=== PATIENT | female | born 1995 | race Caucasian/White ===

== ENCOUNTER 2017-03-16 19:00 | Outpatient (CLI) | payer BC, OTHER ==
[2017-03-16 19:18] VITALS: BP 122/69; PULSE 102; RESP 16; TEMP 96.6
[2017-03-16 19:20] LABS: Appearance,Urine Clear (Clear); Bilirubin,Urine Negative (Negative); Glucose,Urine (UA) Negative (Negative); Ketones,Urine Negative (Negative); Leukocyte Esterase,Urine Negative (Negative); Nitrite,Urine Negative (Negative); Protein,Urine Negative (Negative); Specific Gravity,Urine 1.003 (1.001-1.035); UA Billing (MACRO vs. MICRO) CHEM; Urobilinogen,Urine <2.0 mg/dL (<2.0)
== END 2017-03-16 19:45 | disposition home or self-care (01) ==
LOC: FBPOP 19:00
PROVIDERS: ATTEND Obstetrics & Gynecology
DX: O99.89 Other specified diseases and conditions complicating pregnancy, childbirth and the puerperium (principal); Z3A.30 30 weeks gestation of pregnancy; M54.5 Low back pain
CPT/HCPCS: 59025; 81003; 99213

== ENCOUNTER 2017-05-10 13:22 | Outpatient (CLI) | payer OTHER ==
[2017-05-10 13:42] VITALS: BP 112/68; PULSE 111; RESP 16; TEMP 98.1
== END 2017-05-10 14:40 | disposition home or self-care (01) ==
LOC: FBPOP 13:22
PROVIDERS: ATTEND Obstetrics & Gynecology
DX: O36.8130 Decreased fetal movements, third trimester, not applicable or unspecified (principal); Z3A.40 40 weeks gestation of pregnancy
CPT/HCPCS: 59025; G0463; 99213

== ENCOUNTER 2017-05-12 21:25 | Outpatient (CLI) | payer OTHER ==
[2017-05-13 00:15] VITALS: BP 121/73; PULSE 121; RESP 16; TEMP 97.4
--- NOTE | 2017-05-15 12:06 | P.MSEPDOC ---
Presenting Problems - Arrival Data Date of Arrival on Unit: 05/12/17 Time of Arrival on Unit: 21:25 Mode of Transport: Ambulatory - Complaint OB-Reason for Admission/Chief Complaint: Possible Onset of Labor Medical History - Information : 1 Para: 0 Term: 0 : 0 Abortions: Spontaneous or Elective: 0 Number of Living Children: 0 - Gestational Age Expected Date of Delivery: 05/10/17 Gestational Age by ADITHYA (wks/days): 40 Weeks and 5 Days - History Sexually Transmitted Diseases: HSV Review of Systems - Review of Systems Constitutional: No problems Breast: No problems ENT: No problems Cardiovascular: No problems Respiratory: No problems Gastrointestinal: No problems Genitourinary: No problems Musculoskeletal: No problems Neurological: No problems Skin: No problems Vital Signs - Temperature Temperature: 97.4 F Temperature Source: Oral - Pulse Right Sitting Brachial Pulse Rate: 121 Pulse Assessment Method: Automatic Cuff - Respirations Respiratory Rate: 16 Oxygen Delivery Method: Room Air - Blood Pressure Right Arm Sitting Blood Pressure: 121/73 Blood Pressure Mean: 89 Blood Pressure Source: Automatic Cuff Medical Screen Scoring (Pre) - Cervical Exam Dilation: 1-3 cm = 1 Effacement: More than 50% = 2 Membranes: Intact - Uterine Contractions Frequency: > or = 36 weeks =2 Duration: > 40 seconds = 2 - Maternal Vital Signs Maternal Temperature: N/A Maternal Blood Pressure: N/A Signs of Preeclampsia: N/A Maternal Respirations: N/A - Maternal Trauma Maternal Trauma: N/A - Assessment Baseline FHR: 135 Heart Rate - NICHD Category: Category I (Normal) = 0 NST: Reactive Position: N/A Station: N/A - Total Score Total Score (Pre): 7 - Level of Risk Level of Risk: Medium (6-9) Medical Screen Scoring (Post) - Cervical Exam Dilation: 1-3 cm = 1 Effacement: More than 50% = 2 Membranes: Intact - Uterine Contractions Frequency: > or = 36 weeks =2 Duration: > 40 seconds = 2 Intensity: N/A - Maternal Vital Signs Maternal Temperature: N/A Maternal Blood Pressure: N/A Signs of Preeclampsia: N/A Maternal Respirations: N/A - Maternal Trauma Maternal Trauma: N/A - Assessment Heart Rate: 140 Heart Rate - NICHD Category: Category I (Normal) = 0 NST: Reactive Position: N/A Station: N/A - Total Score Total Score (Post): 7 - Post Treatment Level of Risk Post Treatment Level of Risk: Medium (6-9) Physician Notification (Post) - Physician Notified Physician Notified Date: 05/12/17 Physician Notified Time: 23:39 Physician/Practitioner Notified:: dr luevano Spoke With: dr luevano New Order Received: Yes Disposition - Disposition OB Disposition: Discharge to home Discharge Date: 05/13/17 Discharge Time: 00:00 I agree with the RN Medical Screening Exam: Yes Risk & Benefit of care provided described in d/c instruction: Yes Diagnosis: 40 WEEKS GESTATION OF
== END 2017-05-13 | disposition home or self-care (01) ==
LOC: FBPOP 21:25
PROVIDERS: ATTEND Obstetrics & Gynecology
DX: O24.419 Gestational diabetes mellitus in pregnancy, unspecified control (principal); Z3A.40 40 weeks gestation of pregnancy
CPT/HCPCS: 59025; G0463; 99213

== ENCOUNTER 2017-05-13 02:19 | Inpatient (IN) | payer OTHER ==
[2017-05-13] MEDS ORDERED: CARBOPROST TROMETHAMINE 250 MCG/ML 1 ML AMP IM PRN (02:31)
[2017-05-13] MEDS ORDERED: METHYLERGONOVINE 0.2 MG/ML 1 ML AMP IM PRN (02:31)
[2017-05-13] MEDS ORDERED: LIDOCAINE 1% (PF) 10 MG/ML (30 ML SDV) SQ PRN (02:31)
[2017-05-13] MEDS ORDERED: OXYTOCIN 10 UNIT/ML 1 ML VIAL IM PRN (02:31)
[2017-05-13] MEDS ORDERED: TERBUTALINE 1 MG/ML VIAL SQ PRN (02:31)
[2017-05-13] MEDS ORDERED: LACTATED RINGERS 1,000 ML IV SCH ×2 (02:45→12:45)
[2017-05-13 03:05] LABS: Anisocytosis Slight; Basophils % (A) 0 %; CH 24.1; Eosinophils # (A) 0.5 k/uL (0-0.7); Eosinophils % (A) 3 %; HCT 33.3 % (34.0-46.0); HDW 3.49; HGB 10.6 gm/dL (11.4-16.0); Hypochromasia Marked; Luc % (Auto) 3; Lymphocytes # (A) 2.3 k/uL (1.0-4.8); Lymphocytes % (A) 15 %; MCH 24.9 pg (25.0-35.0); MCV 77.9 fL (80.0-100.0); Mean Platelet Volume 6.7; Microcytosis Slight; Monocytes # (A) 0.5 k/uL (0-1.0); Monocytes % (A) 3 %; Neutrophils # (A) 11.2 k/uL (1.3-7.7); Neutrophils % (A) 75 %; Poikilocytosis Slight; RBC 4.27 m/uL (3.80-5.40); RDW 16.1 % (11.5-15.5); WBC 14.8 k/uL (4.0-11.0); WBC (Perox) 15.65
[2017-05-13] MEDS ORDERED: fentaNYL (PF) 50 MCG/ML 5 ML AMP ONE ×2 (03:24→11:44)
[2017-05-13] MEDS ORDERED: SODIUM CHLORIDE 0.9% 100 ML BAG ONE ×2 (03:24→11:44)
[2017-05-13] MEDS ORDERED: BUPIVACAINE (PF) 0.25% 30 ML VIAL ONE ×2 (03:24→11:44)
[2017-05-13] MEDS: LACTATED RINGERS 1,000 ML IV SCH ×2 (03:36→09:33)
--- NOTE | 2017-05-13 07:56 | P.HPOB ---
History of Present Illness H&P Date: 05/13/17 Chief Complaint: Strong regular uterine contractions This is a 21-year-old white female 1 para 0 EDC 05/10/2017 at 40-3/7 weeks' gestation. Patient presented through the night to labor and delivery with strong regular uterine contractions. Fetus is been active throughout the . She denies fluid leakage or vaginal bleeding. history: Blood type is A+, rubella status immune. VDRL testing, group B strep cultures, HIV testing, gonorrhea and chlamydia cultures all negative. Hour Glucola elevated, 3 hour GTT within normal limits. Rubella status immune. Past medical history is significant for herpes simplex virus, patient with no active lesions at this time. No prodrome. Past medical history is also significant for asthma. Past surgical history is negative. Current medications Ventolin inhaler 1 puff every 6 hours as needed, Valtrex prophylactically daily. ALLERGIES to cats and seasonal ALLERGIES, no known medical ALLERGIES. Social history patient previously smoked one half pack per day tobacco, she is , she denies alcohol or drug use. Family history is essentially noncontributory. On exam this is a pleasant young female, 5 foot 2 inches, 195 pounds, initial blood pressure 119/71, vital signs are stable and she is afebrile. The general physical exam is within normal limits. The chest is clear in all wilcox. The cervix at time of this dictation is 8 cm dilated, 75% effaced, -2 station, vertex presentation. Spontaneous amniorrhexis earlier revealed light meconium- stained fluid. heart rate is in the 140s with frequent accelerations, consistent with reactive NST. Spontaneous contractions are occurring every 5-6 minutes apart, and epidural is in place and working well. Impression: 40-3/7 weeks intrauterine , light meconium-stained fluid, active spontaneous labor, all signs reassuring. Plan: We will begin a small amount of oxytocin augmentation and manage as clinically appropriate. Continue close maternal and surveillance. Anticipate normal spontaneous vaginal delivery. Past Medical History Past Medical History: Asthma Additional Past Medical History / Comment(s): HSV History of Any Multi-Drug Resistant Organisms: None Reported Past Surgical History: No Surgical Hx Reported Past Anesthesia/Blood Transfusion Reactions: No Reported Reaction Past Psychological History: No Psychological Hx Reported Smoking Status: Former smoker Past Alcohol Use History: None Reported Past Drug Use History: None Reported - Past Family History Mother Family Medical History: No Reported History Medications and Allergies Home Medications Medication Instructions Recorded Confirmed Type Vit,Calc78/Iron/Folic 1 each PO DAILY 03/16/17 05/13/17 History [Pretab 29 mg-1 mg Tablet] Allergies Allergy/AdvReac Type Severity Reaction Status Date / Time No Known Allergies Allergy Verified 05/13/17 02:29 Exam - Vital Signs Vital signs: Vital Signs Temp Pulse Resp BP Pulse Ox 05/13/17 02:35 96.5 F L 109 H 18 119/71 99 05/13/17 02:29 96.2 F L 109 H 18 119/71 Intake and Output 05/12/17 05/13/17 05/13/17 22:59 06:59 14:59 Other: Weight 88.451 kg Results Result Diagrams: 05/13/17 02:55 Abnormal Lab Results - Last 24 Hours (Table) 05/13/17 Range/Units 02:55 WBC 14.8 H (4.0-11.0) k/uL Hgb 10.6 L (11.4-16.0) gm/dL Hct 33.3 L (34.0-46.0) % MCV 77.9 L (80.0-100.0) fL MCH 24.9 L (25.0-35.0) pg RDW 16.1 H (11.5-15.5) % Neutrophils # 11.2 H (1.3-7.7) k/uL
[2017-05-13] MEDS ORDERED: OXYTOCIN 20 UNITS/1000 ML NS 1,000 ML IV SCH (08:00)
[2017-05-13] MEDS ORDERED: ceFAZolin 1,000 MG VIAL ONE (11:44)
[2017-05-13] MEDS ORDERED: OXYTOCIN 10 UNIT/ML 1 ML VIAL ONE (11:44)
[2017-05-13] MEDS ORDERED: MIDAZOLAM 2 MG/2 ML VIAL ONE (11:44)
[2017-05-13] MEDS ORDERED: SUCCINYLCHOLINE CHLORIDE 100 MG/5 ML SYR IV ONE (11:44)
[2017-05-13] MEDS ORDERED: PROPOFOL 10 MG/ML 20 ML VIAL IV ONE (11:44)
[2017-05-13] MEDS ORDERED: CITRIC ACID-SODIUM CITRATE 15 ML CUP PO ONE (12:29)
[2017-05-13] MEDS ORDERED: ACETAMINOPHEN TAB 325 MG TAB PO PRN (12:44)
[2017-05-13] MEDS ORDERED: diphenhydrAMINE 50 MG CAP PO PRN (12:44)
[2017-05-13] MEDS ORDERED: ZOLPIDEM 5 MG TAB PO PRN (12:44)
[2017-05-13] MEDS ORDERED: SIMETHICONE 80 MG CHEWABLE PO PRN (12:44)
[2017-05-13] MEDS ORDERED: METOCLOPRAMIDE 5 MG/ML 2 ML VIAL IVP PRN (12:44)
[2017-05-13] MEDS ORDERED: diphenhydrAMINE 25 MG CAP PO PRN (12:44)
[2017-05-13] MEDS ORDERED: IBUPROFEN 600 MG TAB PO PRN (12:44)
[2017-05-13] MEDS ORDERED: diphenhydrAMINE 50 MG/ML 1 ML VIAL IVP PRN ×2 (12:44)
[2017-05-13] MEDS ORDERED: ONDANSETRON 4 MG/2 ML VIAL IVP PRN (12:44)
[2017-05-13] MEDS ORDERED: NALOXONE 0.4 MG/ML 1 ML VIAL IV PRN (12:44)
--- NOTE | 2017-05-13 12:44 | P.OP ---
Date of Procedure: 05/13/17 Preoperative Diagnosis: Nonreassuring heart tones, 40-3/7 weeks intrauterine , meconium- stained fluid Postoperative Diagnosis: Liveborn male , left occiput transverse position, tight nuchal cord 1 Procedure(s) Performed: Primary low transverse section Implants: Anesthesia: GETA Surgeon: Gina Castro Assurance Manager Insurance #1: Mar Canales Estimated Blood Loss (ml): 600 IV fluids (ml): 1,000 Urine output (ml): 400 Pathology: other (Placenta) Condition: stable Disposition: PACU Indications for Procedure: Operative Findings: Description of Procedure: Patient was brought to the operating suite and placed in the dorsal supine position. The abdomen is prepped and draped in usual sterile fashion. Eubanks catheter placed to direct drainage, Bicitra given. Left lateral uterine displacement is obtained. The appropriate timeout is performed to assure proper patient and procedural identification. Because of the stat nature of this case, general anesthetic was administered without difficulty A low transverse skin incision is made in this is carried down through the subcutaneous tissue which is approximate 4 cm deep. The fascia is isolated, scored, extended bilaterally with curved De La Cruz scissors. Peritoneum is next identified and incised, there is no bowel or bladder involvement. Bladder blade is placed over the dome of the bladder and at all times the bladder is Well from the operative field to avoid bladder and/or ureteral injury. A bladder flap was not developed. A low transverse uterine incision is made in this is extended with blunt dissection. The infant's head is delivered in the left occiput transverse position, there is a tight nuchal cord 1. Bulb suctioning of the oropharynx, nasopharynx and external nares is performed on the abdomen. Patient is officially delivered of a liveborn male at 1151 hours. Umbilical cord is doubly clamped and ligated, he is immediately handed to waiting senior insight manager international where scores of 13 and 7 at one and 5 and 10 minutes respectively are given. The placenta delivered manually, it is inspected and noted to be intact with trivascular cord at 1152 hours. The uterus is then externalized. It is massaged and swept clean with a sponge to avoid any retained products of conception. The uterus is closed in a two- step fashion, utilizing 0 Vicryl suture, first layer running locking, second layer imbricated. Excellent reapproximation and hemostasis is noted. Bilateral tubes and ovaries are inspected and noted to be normal. No uterine defects, fibroids, or septa are appreciated. The abdomen is suctioned with suction on guard and the uterus is gently placed back into the abdominal cavity. Bilateral gutters are inspected and cleaned. Hemostasis again is excellent. The peritoneum was allowed to close by secondary intention. The fascia is closed in a running stitch of 0 Vicryl with over ligation in the midline. Subcutaneous tissue is irrigated, noted to be clean and dry. It is reapproximated with 3-0 Vicryl in a running fashion. 4-0 undyed Vicryl is used in a subcuticular manner for final skin closure. Steri-Strips and Mastisol are applied to the wound. 2 g of Ancef were given. Baby weighs 9 lbs. 4 oz. or 4190 g. He is in special care nursery at this time being cared for by pediatricians. Cord gases have been drawn. Results pending at this time.
[2017-05-13] MEDS: MORPHINE PCA 30 MG/30 ML SYRINGE IV PRN ×3 (13:17→23:56)
[2017-05-13] MEDS: KETOROLAC 30 MG/ML 1 ML VIAL IVP PRN (21:03)
[2017-05-13] MEDS: SENNOSIDES-DOCUSATE SODIUM 1 EACH TAB PO SCH (21:48)
[2017-05-14] MEDS: KETOROLAC 30 MG/ML 1 ML VIAL IVP PRN ×3 (03:13→15:13)
[2017-05-14] MEDS ORDERED: SODIUM CHLORIDE 0.9% 100 ML BAG ONE ×2 (03:24→11:44)
[2017-05-14] MEDS ORDERED: BUPIVACAINE (PF) 0.25% 30 ML VIAL ONE ×2 (03:24→11:44)
[2017-05-14] MEDS ORDERED: fentaNYL (PF) 50 MCG/ML 5 ML AMP ONE ×2 (03:24→11:44)
[2017-05-14 06:41] LABS: Anisocytosis Slight; Basophils % (A) 0 %; CH 23.9; CHCM 30.2; Eosinophils # (A) 0.3 k/uL (0-0.7); Eosinophils % (A) 2 %; HCT 22.3 % (34.0-46.0); HDW 3.44; Hypochromasia Marked; Luc # (Auto) 0.28; Luc % (Auto) 3; Lymphocytes # (A) 1.5 k/uL (1.0-4.8); Lymphocytes % (A) 14 %; MCH 25.3 pg (25.0-35.0); MCHC 31.9 g/dL (31.0-37.0); MCV 79.4 fL (80.0-100.0); Mean Platelet Volume 8.6; Microcytosis Slight; Monocytes # (A) 0.4 k/uL (0-1.0); Monocytes % (A) 4 %; Neutrophils # (A) 8.5 k/uL (1.3-7.7); Neutrophils % (A) 78 %; Poikilocytosis Slight; RDW 16.3 % (11.5-15.5); WBC (Perox) 10.84
[2017-05-14 06:48] LABS: HGB 7.1 gm/dL (11.4-16.0)
--- NOTE | 2017-05-14 07:46 | P.DS ---
Providers Date of admission: 05/13/17 02:35 Expected date of discharge: 05/14/17 Attending physician: Gina Castro Primary care physician: Gina Castro [facility] Course: This is a 21-year-old white female 1 para 0 EDC 05/10/2017 at 40-3/7 weeks' gestation. Patient presented in active spontaneous labor. was essentially unremarkable, group B strep cultures negative, blood type A+, rubella status immune. Please see dictated history and physical for details. Spontaneous amniorrhexis revealed meconium-stained fluid. Patient dilated to 9 cm at which time a deceleration was noted in the heart rate which did not return to baseline upon position change, oxygen administration, and discontinuation of oxytocin augmentation. Decision was made to proceed with primary low transverse section. Patient delivered a liveborn male with scores of 1, 3 and 7 at 1, 5 and 10 minutes respectively. weighed 4190 g, or 9 lbs. 4 oz. He was in the left occiput transverse position with a tight nuchal cord 1. There was an estimated blood loss recorded of 600 mL's. Please see my dictated operative note for details. Patient did well through the night. Her [facility] care. This morning the patient is very anxious to be discharged home so that she could join her son down in [place]. She is voiding , passing flatus and ambulating without difficulty. She is slightly tachycardic this morning with a pulse of 106, otherwise vital signs are stable. Morning CBC has been drawn but is pending. Her incision is clean and dry, intact with Steri-Strips applied. The fundus is firm and in the midline, slightly tender, mobile and 18 week size. Extremities reveal trace edema. Chest is clear in all wilcox. Breasts are not engorged. Plan is for likely discharge home later today. This will be pending CBC results and patient's pulse. I had advanced her diet, she may shower. I have given her prescription for Tylenol No. 3 to be used every 6 hours as needed for pain. She will alternate this with Aleve which she has at home. I have reminded her no intercourse, tampons or douching. We have reviewed proper incisional care. She will call me with any fevers shakes or chills, foul smelling or copious lochia, with the passage of any large blood clots, with any pain not alleviated by Tylenol 3 and or Aleve. She will call with any breast issues, with any incisional issues, or indeed with any concerns. Follow-up in the office with me in 2 weeks. Patient Condition at Discharge: Good Plan - Discharge Summary New Discharge Prescriptions: No Action Vit,Calc78/Iron/Folic [Pretab 29 mg-1 mg Tablet] 1 tab PO DAILY Discharge Medication List Vit,Calc78/Iron/Folic [Pretab 29 mg-1 mg Tablet] 1 tab PO DAILY [History] Follow up Appointment(s)/Referral(s): Gina Castro MD [Primary Care Provider] - 2 Weeks Discharge Disposition: HOME SELF-CARE
[2017-05-14] MEDS: Acetaminophen-Codeine 300-30mg TAB PO PRN ×2 (07:52→12:25)
[2017-05-14] MEDS: SENNOSIDES-DOCUSATE SODIUM 1 EACH TAB PO SCH (07:54)
[2017-05-14 10:22] VITALS: RESP 20
[2017-05-14] MEDS ORDERED: MIDAZOLAM 2 MG/2 ML VIAL ONE (11:44)
[2017-05-14] MEDS ORDERED: SUCCINYLCHOLINE CHLORIDE 100 MG/5 ML SYR IV ONE (11:44)
[2017-05-14] MEDS ORDERED: OXYTOCIN 10 UNIT/ML 1 ML VIAL ONE (11:44)
[2017-05-14] MEDS ORDERED: PROPOFOL 10 MG/ML 20 ML VIAL IV ONE (11:44)
[2017-05-14] MEDS ORDERED: KETOROLAC 30 MG/ML 1 ML VIAL ONE (11:44)
[2017-05-14 12:29] VITALS: BP 99/56; PULSE 98; TEMP 97.8
== END 2017-05-14 15:45 | disposition home or self-care (01) | DRG 766 ==
LOC: FBPOP 02:19 → 4FBP 02:35
PROVIDERS: ADMIT Obstetrics & Gynecology; ATTEND Obstetrics & Gynecology
PROC: 10D00Z1 Extraction of Products of Conception, Low, Open Approach (ICD-10-PCS; principal; 2017-05-13 11:47)
DX: O76 Abnormality in fetal heart rate and rhythm complicating labor and delivery (principal); J45.909 Unspecified asthma, uncomplicated; Z37.0 Single live birth; O77.0 Labor and delivery complicated by meconium in amniotic fluid; O99.52 Diseases of the respiratory system complicating childbirth; O69.1XX0 Labor and delivery complicated by cord around neck, with compression, not applicable or unspecified; Z87.891 Personal history of nicotine dependence; Z3A.40 40 weeks gestation of pregnancy; Z79.899 Other long term (current) drug therapy; Z86.19 Personal history of other infectious and parasitic diseases
CPT/HCPCS: 59025; 85025; 88307; 99213